=== PATIENT | male | born 1970 | race African-American/Black ===

== ENCOUNTER 2017-05-23 14:50 | Emergency (ER) | payer SELFPAY ==
[~2017-05-23] VITALS: Ht 177.8 cm; Wt 120.0 kg
[~2017-05-23 14:50] MED LIST: CYCL-36 PO; IBUP-232 PO; METF1000 PO; ZOCO40TA PO
[2017-05-23 15:03] VITALS: BP 159/81; PULSE 92; RESP 20; TEMP 99.2; O2SAT 99
--- NOTE | 2017-05-23 15:10 | PD ---
Physical Exam Time Seen by Provider: 15:09 Narrative 47 y/o male with hx DM presents with painful feet from walking. BS 299 per ems. Vital signs reviewed. Seen at triage desk. Awaiting bed placement. Data Data Last Documented VS Vital Signs Date Time Temp Pulse Resp B/P Pulse Ox O2 Delivery O2 Flow Rate FiO2 05/23/17 15:03 99.2 92 20 159/81 99 Room Air MDM Medical Record Reviewed: Yes Supervised Visit with MARY: Paul Ibanez May 23, 2017 15:09
[2017-05-23] MEDS ORDERED: ASPI-110 PO (16:45)
[2017-05-23] MEDS ORDERED: METO25TA6 PO (16:45)
[2017-05-23] MEDS ORDERED: SIMV10TA PO (16:45)
[2017-05-23] MEDS ORDERED: METF1000 PO (16:45)
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
[2017-05-23 17:18] VITALS: BP 133/64; PULSE 75; RESP 18; O2SAT 94
[2017-05-23 17:30] LABS: BASOPHIL % 0.5 % (0.0-2.0); EOSINOPHIL # 0.1 TH/MM3 (0-0.4); EOSINOPHIL % 1.6 % (0.0-4.0); HEMATOCRIT 37.8 % (39.0-51.0); HEMO FLAGS DIFF FINAL; LYMPH % 23.1 % (9.0-44.0); LYMPHOCYTE # 2.1 TH/MM3 (1.0-4.8); MEAN CELL VOLUME 91.3 FL (80.0-100.0); MEAN CORPUSCULAR HEMOGLOBIN 30.1 PG (27.0-34.0); MONO % 10.7 % (0.0-8.0); NEUT % 64.1 % (16.0-70.0); PLATELET COUNT 160 TH/MM3 (150-450); RED BLOOD COUNT 4.14 MIL/MM3 (4.50-5.90); RED CELL DISTRIBUTION WIDTH 13.2 % (11.6-17.2); WHITE BLOOD COUNT 9.3 TH/MM3 (4.0-11.0)
[2017-05-23 17:53] LABS: ANION GAP 6 MEQ/L (5-15); AST (GOT) 107 U/L (15-37); BICARBONATE 30.4 MEQ/L (21.0-32.0); BLOOD UREA NITROGEN 14 MG/DL (7-18); CHLORIDE 104 MEQ/L (98-107); GLOMERULAR FILTRATION RATE 78 ML/MIN (>89); POTASSIUM 3.3 MEQ/L (3.5-5.1); SODIUM (NA) 140 MEQ/L (136-145)
[2017-05-23 17:54] LABS: ALT (GPT) 118 U/L (12-78)
[2017-05-23 17:56] LABS: ALKALINE PHOSPHATASE 47 U/L (45-117); TOTAL BILIRUBIN ADULT 0.8 MG/DL (0.2-1.0)
[2017-05-23] MEDS ORDERED: POTASSIUM CHLORIDE 10 MEQ CONTROLLED RELEASE TAB PO ONE (18:15)
[2017-05-23 18:20] VITALS: BP 169/91; PULSE 75; RESP 18; O2SAT 96
[2017-05-24] VITALS: BP 152/78; PULSE 68; RESP 16; O2SAT 95
== END 2017-05-24 06:20 | disposition home or self-care (01) ==
LOC: NEPE 14:50 → NEDAMB 05-24 06:20
DX: S90.822A Blister (nonthermal), left foot, initial encounter (principal); S90.821A Blister (nonthermal), right foot, initial encounter; F17.200 Nicotine dependence, unspecified, uncomplicated; E78.00 Pure hypercholesterolemia, unspecified; E11.9 Type 2 diabetes mellitus without complications; K21.9 Gastro-esophageal reflux disease without esophagitis; Y93.01 Activity, walking, marching and hiking; Z59.0 Homelessness
CPT/HCPCS: 80053; 85025; 99283

== ENCOUNTER 2017-08-08 02:14 | Inpatient (IN) | payer SELFPAY ==
[2017-08-08] VITALS (13 sets, daily range): BP systolic 112–183; BP diastolic 66–88; PULSE 64–87; RESP 12–22; TEMP 98–101; O2SAT 95–100
[~2017-08-08] VITALS: Ht 177.8 cm; Wt 97.9 kg
[~2017-08-08 02:14] MED LIST changes: +ASPI-110 PO; -CYCL-36 PO; -IBUP-232 PO; +METO25TA6 PO; +SIMV10TA PO; -ZOCO40TA PO
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
[2017-08-08] MEDS ORDERED: ceFAZolin 2 GM PREMIX 50 ML IV ONE (02:45)
[2017-08-08] MEDS ORDERED: DIPHTH/TETANUS/ACEL PERTUSSIS (BOOSTER) 0.5 ML VIAL/PFS IM ONE (02:45)
[2017-08-08] MEDS ORDERED: SODIUM CHLOR 0.9% 1000 ML INJ 1,000 ML IV ONE ×2 (02:45→04:30)
[2017-08-08 02:48] LABS: AUTOMATED NEUTROPHIL # 4.4 TH/MM3 (1.8-7.7); BASOPHIL % 0.6 % (0.0-2.0); EOSINOPHIL # 0.1 TH/MM3 (0-0.4); EOSINOPHIL % 1.4 % (0.0-4.0); HEMATOCRIT 44.3 % (39.0-51.0); HEMO FLAGS DIFF FINAL; LYMPH % 23.6 % (9.0-44.0); LYMPHOCYTE # 1.7 TH/MM3 (1.0-4.8); MEAN CELL VOLUME 91.8 FL (80.0-100.0); MEAN CORPUSCULAR HEMOGLOBIN 30.4 PG (27.0-34.0); MEAN CORPUSCULAR HGB CONC 33.1 % (32.0-36.0); MONO % 13.4 % (0.0-8.0); PLATELET COUNT 198 TH/MM3 (150-450); RED BLOOD COUNT 4.83 MIL/MM3 (4.50-5.90); RED CELL DISTRIBUTION WIDTH 12.5 % (11.6-17.2); WHITE BLOOD COUNT 7.1 TH/MM3 (4.0-11.0)
[2017-08-08 03:05] LABS: APTT (PATIENT) 23.4 SEC (24.3-30.1); INTERNATIONAL NORMALIZED RATIO 0.9 RATIO
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
[2017-08-08 03:36] LABS: BLOOD, URINE TRACE (NEG); GLUCOSE,URINE 1000 mg/dL (NEG); KETONE, URINE 10 mg/dL (NEG); NITRITE,URINE NEG (NEG); PH, URINE 6.5 (5.0-8.5); URINE COLOR LIGHT-YELLOW (YELLW/STRAW)
[2017-08-08 03:43] LABS: COMMENT (UR) CULT NOT INDICATED; CULTURE IF INDICATED CULT NOT INDICATED
[2017-08-08 04:08] LABS: ALKALINE PHOSPHATASE 98 U/L (45-117); ALT (GPT) 38 U/L (12-78); ANION GAP 5 MEQ/L (5-15); AST (GOT) 32 U/L (15-37); BICARBONATE 32.7 MEQ/L (21.0-32.0); BLOOD UREA NITROGEN 15 MG/DL (7-18); CHLORIDE 92 MEQ/L (98-107); CREATINE KINASE 730 U/L (39-308); GLOMERULAR FILTRATION RATE 47 ML/MIN (>89); MAGNESIUM 2.3 MG/DL (1.5-2.5); SODIUM (NA) 130 MEQ/L (136-145); TOTAL BILIRUBIN ADULT 0.6 MG/DL (0.2-1.0)
[2017-08-08 04:09] LABS: ALCOHOL LESS THAN 3 MG/DL (0-5); POTASSIUM 4.8 MEQ/L (3.5-5.1)
[2017-08-08] MEDS ORDERED: IODIXANOL 320 MG/ML 10 ML VIAL (for Rad CT) IVCONTRAST ONE (04:44)
[2017-08-08 04:58] LABS: BLOOD GAS VENOUS BASE EXCESS 7.7 mmol/L (-2-2); BLOOD GAS VENOUS HCO3 34 mmol/L (22-26); BLOOD GAS VENOUS O2 CONTENT 6.4 Vol % (9.0-17.0); BLOOD GAS VENOUS O2 HGB SAT 32 % (70-76); BLOOD GAS VENOUS PCO2 67 mmHg (44-48); BLOOD GAS VENOUS pH 7.32 (7.360-7.400); TEMP CORR TO 98.6
[2017-08-08 04:59] LABS: BLOOD GAS VENOUS PO2 22 mmHg (35-40)
[2017-08-08 05:00] LABS: CRITICAL VALUE YES
[2017-08-08 05:01] LABS: DRAW SITE IV; FIO2 21 %; OXYGEN DEVICE RA; STAT YES
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
[2017-08-08 05:21] LABS: CKMB LESS THAN 0.5 NG/ML (0.5-3.6)
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
[2017-08-08] MEDS ORDERED: INSULIN REGULAR (IV INFUSION) 100 UNITS in SODIUM CHLORIDE 0.9% INJ 99 ML IV SCH (05:30)
[2017-08-08] MEDS ORDERED: CHLORHEXIDINE GLUCONATE 2 % 1 PACK (2 CLOTHS) TOP PRN (07:45)
[2017-08-08] MEDS ORDERED: ONDANSETRON HCL 4 MG/2 ML VIAL IV PUSH PRN (07:45)
[2017-08-08] MEDS ORDERED: MORPHINE SULFATE 4 MG/ML INJ IV PUSH PRN (07:45)
[2017-08-08] MEDS ORDERED: RESP: ALBUTEROL 2.5 MG/IPRATROPIUM 0.5 MG NEB (PRN) INH (07:45)
[2017-08-08] MEDS ORDERED: BISACODYL 10 MG SUPP RECTAL PRN (07:45)
[2017-08-08] MEDS ORDERED: SENNOSIDES 8.6 MG TAB PO PRN (07:45)
[2017-08-08] MEDS ORDERED: MISCELLANEOUS NURSING INFORMATION XX SCH (07:45)
[2017-08-08] MEDS ORDERED: LACTULOSE SYRUP 20 GM/30 ML CUP PO PRN (07:45)
[2017-08-08] MEDS ORDERED: ACETAMINOPHEN 325 MG TAB PO PRN (07:45)
[2017-08-08] MEDS ORDERED: MAGNESIUM HYDROXIDE SUSP 30 ML CUP PO PRN (07:45)
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
[2017-08-08] MEDS: SODIUM CHLOR 0.9% 1000 ML INJ 1,000 ML IV SCH ×3 (08:25→23:53)
[2017-08-08] MEDS: METOPROLOL SUCCINATE 25 MG EXTENDED RELEASE TAB PO SCH (09:00)
[2017-08-08] MEDS: ASPIRIN EC 81 MG TABEC PO SCH (09:00)
[2017-08-08] MEDS: DOCUSATE SODIUM 50 MG/SENNA 8.6 MG TAB PO SCH ×2 (09:00→21:00)
[2017-08-08] MEDS: PANTOPRAZOLE SODIUM 40 MG VIAL IV PUSH SCH (10:07)
[2017-08-08] MEDS: ENOXAPARIN SODIUM 40 MG/0.4 ML SYRINGE SQ SCH (10:07)
[2017-08-08] MEDS ORDERED: DEXTROSE 50% IN WATER 50 ML SYRINGE ONE (12:47)
[2017-08-08] MEDS ORDERED: DEXTROSE 50% IN WATER 50 ML SYRINGE IV PUSH PRN (13:15)
[2017-08-08] MEDS ORDERED: GLUCAGON 1 MG/ML VIAL OTHER PRN (13:15)
[2017-08-08] MEDS ORDERED: DC previous DKA orders (HMC 1917) ONE (13:15)
[2017-08-08] MEDS ORDERED: DC Insulin drip 2 hrs post basal insulin dose ONE (13:15)
[2017-08-08] MEDS: DEXT 5%-NACL 0.9% 1000 ML INJ 1,000 ML IV SCH (14:00)
[2017-08-08] MEDS ORDERED: DEXTROSE 50% IN WATER 50 ML SYRINGE IV ONE (14:00)
--- NOTE | 2017-08-08 14:16 | EKG ---
Date Performed: 08/08/2017 Time Performed: 03:52:01 PTAGE: 47 years EKG: Sinus rhythm NORMAL ECG Compared to prior tracing no significant change PREVIOUS TRACING :12/27/15 DOCTOR: Kobi De La Paz Interpretating Date/Time 08/08/2017 14:14:53
[2017-08-08] MEDS: INSULIN ASPART SUPPLEMENTAL SCALE SQ SCH ×2 (16:52→21:00)
[2017-08-08 17:58] LABS: BICARBONATE 26.8 MEQ/L (21.0-32.0); POTASSIUM 4.1 MEQ/L (3.5-5.1)
[2017-08-08] MEDS: PRAVASTATIN SOD 20 MG TAB PO SCH (21:00)
[2017-08-08] MEDS: INSULIN DETEMIR 100 UNITS/ML VIAL SQ SCH (21:00)
[2017-08-09] VITALS (11 sets, daily range): BP systolic 106–135; BP diastolic 66–79; PULSE 61–75; RESP 15–20; TEMP 98.3–98.9; O2SAT 94–99
[2017-08-09] MEDS: CHLORHEXIDINE GLUCONATE 2 % 1 PACK (2 CLOTHS) TOP SCH (04:00)
[2017-08-09 04:04] LABS: AUTOMATED NEUTROPHIL # 3.2 TH/MM3 (1.8-7.7); BASOPHIL % 0.8 % (0.0-2.0); EOSINOPHIL # 0.2 TH/MM3 (0-0.4); EOSINOPHIL % 2.8 % (0.0-4.0); HEMATOCRIT 42.7 % (39.0-51.0); HEMO FLAGS DIFF FINAL; LYMPH % 29.9 % (9.0-44.0); LYMPHOCYTE # 1.7 TH/MM3 (1.0-4.8); MEAN CELL VOLUME 92.1 FL (80.0-100.0); MEAN CORPUSCULAR HEMOGLOBIN 30.2 PG (27.0-34.0); MEAN CORPUSCULAR HGB CONC 32.8 % (32.0-36.0); NEUT % 55.5 % (16.0-70.0); PLATELET COUNT 161 TH/MM3 (150-450); RED BLOOD COUNT 4.64 MIL/MM3 (4.50-5.90); RED CELL DISTRIBUTION WIDTH 12.6 % (11.6-17.2); WHITE BLOOD COUNT 5.7 TH/MM3 (4.0-11.0)
[2017-08-09 04:19] LABS: BICARBONATE 28.4 MEQ/L (21.0-32.0); MAGNESIUM 1.8 MG/DL (1.5-2.5)
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
[2017-08-09] MEDS: DEXT 5%-NACL 0.9% 1000 ML INJ 1,000 ML IV SCH ×3 (07:00→20:00)
[2017-08-09] MEDS: SODIUM CHLOR 0.9% 1000 ML INJ 1,000 ML IV SCH ×3 (07:58→23:45)
[2017-08-09] MEDS: INSULIN ASPART SUPPLEMENTAL SCALE SQ SCH ×4 (08:00→20:57)
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
[2017-08-09] MEDS: ASPIRIN EC 81 MG TABEC PO SCH (09:02)
[2017-08-09] MEDS: PANTOPRAZOLE SODIUM 40 MG VIAL IV PUSH SCH (09:02)
[2017-08-09] MEDS: ENOXAPARIN SODIUM 40 MG/0.4 ML SYRINGE SQ SCH (09:03)
[2017-08-09] MEDS: DOCUSATE SODIUM 50 MG/SENNA 8.6 MG TAB PO SCH ×2 (09:03→20:56)
[2017-08-09] MEDS: METOPROLOL SUCCINATE 25 MG EXTENDED RELEASE TAB PO SCH (09:03)
[2017-08-09] MEDS: INSULIN DETEMIR 100 UNITS/ML VIAL SQ SCH (20:57)
[2017-08-09] MEDS: PRAVASTATIN SOD 20 MG TAB PO SCH (20:57)
[2017-08-10 00:45] VITALS: BP 115/67; PULSE 61; RESP 17; TEMP 98.5; O2SAT 98
[2017-08-10] MEDS: CHLORHEXIDINE GLUCONATE 2 % 1 PACK (2 CLOTHS) TOP SCH (04:00)
[2017-08-10 05:28] VITALS: BP 126/68; PULSE 62; RESP 17; TEMP 97.7; O2SAT 95
[2017-08-10] MEDS: DEXT 5%-NACL 0.9% 1000 ML INJ 1,000 ML IV SCH (06:00)
[2017-08-10 08:17] VITALS: BP 126/77; PULSE 60; RESP 20; TEMP 97.2; O2SAT 95
[2017-08-10] MEDS: ENOXAPARIN SODIUM 40 MG/0.4 ML SYRINGE SQ SCH (08:36)
[2017-08-10] MEDS: METOPROLOL SUCCINATE 25 MG EXTENDED RELEASE TAB PO SCH (08:36)
[2017-08-10] MEDS: DOCUSATE SODIUM 50 MG/SENNA 8.6 MG TAB PO SCH (08:36)
[2017-08-10] MEDS: ASPIRIN EC 81 MG TABEC PO SCH (08:36)
[2017-08-10] MEDS: PANTOPRAZOLE SODIUM 40 MG VIAL IV PUSH SCH (08:37)
[2017-08-10] MEDS: SODIUM CHLOR 0.9% 1000 ML INJ 1,000 ML IV SCH (08:37)
[2017-08-10] MEDS: INSULIN ASPART SUPPLEMENTAL SCALE SQ SCH ×3 (08:41→17:29)
[2017-08-10] MEDS ORDERED: metFORMIN HCL 500 MG TAB PO SCH (09:00)
[2017-08-10 12:08] VITALS: BP 108/68; PULSE 60; RESP 19; TEMP 97.2; O2SAT 95
[2017-08-10] MEDS ORDERED: INSU1INJ5 SQ (13:15)
[2017-08-10] MEDS ORDERED: INSU-101 (13:15)
[2017-08-10] MEDS ORDERED: BLOOD GLUCOSE M1 KIT (13:15)
--- NOTE | 2017-08-10 13:16 | HHI.DCPOC ---
Discharge Care Plan Diagnosis: (1) Cocaine abuse (2) Altered mental status (3) Diabetes type 2, uncontrolled Goals to Promote Your Health * To prevent worsening of your condition and complications * To maintain your health at the optimal level Directions to Meet Your Goals Take your medications as prescribed Follow your dietary instruction Follow activity as directed Keep your appointments as scheduled Take your immunizations and boosters as scheduled If your symptoms worsen call your PCP, if no PCP go to Urgent Care Center or Emergency Room Smoking is Dangerous to Your Health. Avoid second hand smoke Call the 24-hour hour crisis hotline for domestic abuse at Sherrill Reyes MD Aug 10, 2017 13:16
[2017-08-10 15:48] VITALS: BP 124/75; PULSE 60; RESP 20; TEMP 98.2; O2SAT 100
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
== END 2017-08-10 18:19 | disposition home or self-care (01) | DRG 70 ==
LOC: NEPE 02:14 → NEDA 05:57 → HIMN 08:50 → N05A 08-09 17:43
PROVIDERS: ADMIT Family Medicine; ATTEND Family Medicine
DX: G93.41 Metabolic encephalopathy (principal); E11.01 Type 2 diabetes mellitus with hyperosmolarity with coma; E87.70 Fluid overload, unspecified; I10 Essential (primary) hypertension; F14.10 Cocaine abuse, uncomplicated; E86.0 Dehydration; I25.10 Atherosclerotic heart disease of native coronary artery without angina pectoris; E78.5 Hyperlipidemia, unspecified; G47.30 Sleep apnea, unspecified; K21.9 Gastro-esophageal reflux disease without esophagitis; M16.0 Bilateral primary osteoarthritis of hip; M17.12 Unilateral primary osteoarthritis, left knee; N28.9 Disorder of kidney and ureter, unspecified; F17.210 Nicotine dependence, cigarettes, uncomplicated; Z79.84 Long term (current) use of oral hypoglycemic drugs; Z91.19 Patient's noncompliance with other medical treatment and regimen; R07.9 Chest pain, unspecified
CPT/HCPCS: 70450; 71010; 72125; 73502; 73564; 74177; 80048; 80053; 80307; 81001; 82010; 82550; 82552; 82805; 82948; 83690; 83735; 83880; 84100; 84484; 85025; 85384; 85610; 85730; 86140; 87641; 90471; 90715; 93005; 96361; 96365; C9113; J0690; J1650; J1815; J1817; J7030; J7042; Q9967

== ENCOUNTER 2017-08-23 22:07 | Inpatient (IN) | payer SELFPAY ==
[~2017-08-23] VITALS: Ht 170.2 cm; Wt 88.9 kg
[~2017-08-23 22:07] MED LIST changes: +BLOOD GLUCOSE M1 KIT; +INSU-101; +INSU1INJ5 SQ
[2017-08-23 22:11] VITALS: BP 195/105; PULSE 110; RESP 21; TEMP 99.9; O2SAT 87
[2017-08-23 22:18] VITALS: O2SAT 94
[2017-08-23] MEDS ORDERED: SODIUM CHLOR 0.9% 1000 ML INJ 1,000 ML IV ONE (22:19)
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
[2017-08-23] MEDS ORDERED: DEXT 5%-NACL 0.9% 1000 ML INJ 1,000 ML IV SCH (22:35)
[2017-08-23] MEDS ORDERED: SODIUM CHLOR 0.9% 1000 ML INJ 1,000 ML IV SCH (22:35)
[2017-08-23 22:38] LABS: AUTOMATED NEUTROPHIL # 3.6 TH/MM3 (1.8-7.7); BASOPHIL % 0.6 % (0.0-2.0); EOSINOPHIL # 0.1 TH/MM3 (0-0.4); EOSINOPHIL % 0.9 % (0.0-4.0); HEMATOCRIT 41.3 % (39.0-51.0); HEMO FLAGS DIFF FINAL; LYMPH % 38.4 % (9.0-44.0); LYMPHOCYTE # 2.8 TH/MM3 (1.0-4.8); MEAN CELL VOLUME 92.8 FL (80.0-100.0); MEAN CORPUSCULAR HGB CONC 34.5 % (32.0-36.0); MONO % 9.8 % (0.0-8.0); NEUT % 50.3 % (16.0-70.0); PLATELET COUNT 266 TH/MM3 (150-450); RED BLOOD COUNT 4.45 MIL/MM3 (4.50-5.90); RED CELL DISTRIBUTION WIDTH 12.8 % (11.6-17.2); WHITE BLOOD COUNT 7.3 TH/MM3 (4.0-11.0)
--- NOTE | 2017-08-23 22:40 | RADRPT ---
EXAM DATE/TIME: 08/23/2017 22:23 [facility] COMPARISON: CHEST SINGLE AP, August 09, 2017, 4:46. INDICATIONS : Cough. MEDICAL HISTORY : Nonresponsive. SURGICAL HISTORY : Nonresponsive. ENCOUNTER: Initial ACUITY: 1 day PAIN SCORE: Non-responsive. LOCATION: Bilateral chest FINDINGS: A single view of the chest demonstrates the lungs to be symmetrically aerated without evidence of mas s, infiltrate or effusion. The cardiomediastinal contours are unremarkable. Osseous structures are intact. CONCLUSION: No acute disease. No significant change has occurred. Sp Wren MD on August 23, 2017 at 22:38 Board Certified Radiologist. This report was verified electronically.
[2017-08-23] MEDS ORDERED: INSULIN HUMAN REGULAR 1,000 UNITS/10 ML VIAL IV PUSH ONE (22:45)
[2017-08-23] MEDS ORDERED: INSULIN REGULAR (IV INFUSION) 100 UNITS in SODIUM CHLORIDE 0.9% INJ 99 ML IV PRN (22:45)
[2017-08-23] MEDS ORDERED: POTASSIUM CHLOR 20 MEQ PREMIX 100 ML IV PRN ×6 (22:45)
[2017-08-23] MEDS ORDERED: SODIUM BICARBONATE 8.4% SOLN 50 MEQ/50 ML VIAL IV PUSH PRN ×2 (22:45)
[2017-08-23] MEDS ORDERED: SODIUM PHOSPHATE INJ 15 MMOL in SODIUM CHLORIDE 0.9% INJ 100 ML IV PRN (22:45)
[2017-08-23] MEDS ORDERED: POTASSIUM CHLOR 40 MEQ PREMIX 100 ML IV PRN ×2 (22:45)
[2017-08-23 22:53] VITALS: BP_SYST 192; BP_SYST 197; BP_DIAS 99; PULSE 105; RESP 18; O2SAT 98
[2017-08-23 23:04] LABS: ACETAMINOPHEN LESS THAN 2.0 MCG/ML (10.0-30.0); ALCOHOL LESS THAN 3 MG/DL (0-5); ALKALINE PHOSPHATASE 86 U/L (45-117); ALT (GPT) 26 U/L (12-78); ANION GAP 6 MEQ/L (5-15); AST (GOT) 24 U/L (15-37); BETA-HYDROXYBUTYRATE 0.49 MMOL/L (0.00-0.39); BICARBONATE 29.9 MEQ/L (21.0-32.0); BLOOD UREA NITROGEN 15 MG/DL (7-18); CHLORIDE 95 MEQ/L (98-107); CREATINE KINASE 115 U/L (39-308); GLOMERULAR FILTRATION RATE 72 ML/MIN (>89); MAGNESIUM 2.3 MG/DL (1.5-2.5); POTASSIUM 4.5 MEQ/L (3.5-5.1); SODIUM (NA) 131 MEQ/L (136-145); TOTAL BILIRUBIN ADULT 0.5 MG/DL (0.2-1.0)
[2017-08-23 23:23] LABS: CKMB LESS THAN 0.5 NG/ML (0.5-3.6)
[2017-08-23 23:28] LABS: BLOOD, URINE NEG (NEG); COMMENT (UR) CULT NOT INDICATED; CULTURE IF INDICATED CULT NOT INDICATED; GLUCOSE,URINE 1000 mg/dL (NEG); KETONE, URINE NEG (NEG); NITRITE,URINE NEG (NEG); URINE COLOR LIGHT-YELLOW (YELLW/STRAW)
[2017-08-23 23:35] VITALS: BP 175/91; PULSE 101; RESP 18; O2SAT 97
[2017-08-24] VITALS (11 sets, daily range): BP systolic 118–160; BP diastolic 69–92; PULSE 71–94; RESP 16–21; TEMP 97.3–99; O2SAT 94–100
[2017-08-24] MEDS ORDERED: SENNOSIDES 8.6 MG TAB PO PRN
[2017-08-24] MEDS ORDERED: MAGNESIUM HYDROXIDE SUSP 30 ML CUP PO PRN
[2017-08-24] MEDS ORDERED: BISACODYL 10 MG SUPP RECTAL PRN
[2017-08-24] MEDS ORDERED: CHLORHEXIDINE GLUCONATE 2 % 1 PACK (2 CLOTHS) TOP PRN
[2017-08-24] MEDS ORDERED: LACTULOSE SYRUP 20 GM/30 ML CUP PO PRN
[2017-08-24] MEDS ORDERED: ONDANSETRON HCL 4 MG/2 ML VIAL IV PUSH PRN
[2017-08-24] MEDS ORDERED: RESP: ALBUTEROL 2.5 MG/IPRATROPIUM 0.5 MG NEB (PRN) INH
[2017-08-24] MEDS ORDERED: MISCELLANEOUS NURSING INFORMATION XX SCH
[2017-08-24 03:25] LABS: BICARBONATE 31.9 MEQ/L (21.0-32.0); MAGNESIUM 2.2 MG/DL (1.5-2.5)
[2017-08-24] MEDS ORDERED: CHLORHEXIDINE GLUCONATE 2 % 1 PACK (2 CLOTHS) TOP SCH (04:00)
[2017-08-24] MEDS ORDERED: GLUCAGON 1 MG/ML VIAL OTHER PRN (04:30)
[2017-08-24] MEDS ORDERED: INSULIN DETEMIR 100 UNITS/ML VIAL SQ SCH (04:30)
[2017-08-24] MEDS ORDERED: DEXTROSE 50% IN WATER 50 ML VIAL(D50) IV PUSH PRN (04:30)
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
[2017-08-24] MEDS: HEPARIN SODIUM - SQ 10,000 UNITS/ML VIAL SQ SCH ×2 (06:04→14:57)
[2017-08-24] MEDS: INSULIN NovoLIN REGULAR SUPPLEMENTAL SCALE SQ SCH ×2 (08:57→14:00)
[2017-08-24] MEDS ORDERED: DOCUSATE SODIUM 50 MG/SENNA 8.6 MG TAB PO SCH (09:00)
[2017-08-24] MEDS ORDERED: INSU-101 (12:48)
[2017-08-24] MEDS ORDERED: INSU1INJ5 SQ (12:48)
--- NOTE | 2017-08-24 12:49 | HHI.DCPOC ---
Discharge Care Plan Diagnosis: (1) DKA (diabetic ketoacidoses) (2) Illicit drug use (3) Cocaine abuse Goals to Promote Your Health * To prevent worsening of your condition and complications * To maintain your health at the optimal level Directions to Meet Your Goals Take your medications as prescribed Follow your dietary instruction Follow activity as directed Keep your appointments as scheduled Take your immunizations and boosters as scheduled If your symptoms worsen call your PCP, if no PCP go to Urgent Care Center or Emergency Room Smoking is Dangerous to Your Health. Avoid second hand smoke Call the 24-hour hour crisis hotline for domestic abuse at Sherrill Reyes MD Aug 24, 2017 12:49
--- NOTE | 2017-08-24 12:49 | HHI.DS ---
Discharge Summary Admission Date Aug 23, 2017 at 23:59 Discharge Date: Aug 24, 2017 Admitting Diagnosis AMS, hyperglycemia hyperosmolar state (1) DKA (diabetic ketoacidoses) ICD Code: E13.10 - DKA (diabetic ketoacidoses) Diagnosis: Principal Status: Acute (2) Cocaine abuse ICD Code: F14.10 - Cocaine abuse, uncomplicated Diagnosis: Principal (3) Diabetes type 2, uncontrolled ICD Code: E11.65 - Type 2 diabetes mellitus with hyperglycemia Diagnosis: Principal Status: Acute (4) Non-compliance ICD Code: Z91.19 - Patient's noncompliance with other medical treatment and regimen Diagnosis: Principal Procedures See hospital course. Brief History - From Admission This is a 47-year-old male who presents to the emergency department with a history of altered mental status and being found wandering the street. The patient has been admitted here in the past with drug intoxication as well as diabetic ketoacidosis, most often from medication noncompliance. per EMS, the patient had a critically high blood sugar and a BP of 200/100. Lab tests are pertinent for an elevated serum ketone level with a venous pH 7.2. He has no evidence of infection. He was started on DKA protocol and an insulin drip and the shearing shed hand service was consulted to evaluate and manage his DKA, most likely secondary to medication noncompliance. I evaluated the patient and he was arousable and would follow simple commands. However, he refused to cooperate with my medical exam and did not answer any additional questions. His UDS is + for cocaine. CBC/BMP: 08/23/17 2225 08/24/17 0251 Significant Findings Laboratory Tests Test 08/23/17 22:25 08/23/17 22:32 08/23/17 23:10 08/24/17 02:51 Red Blood Count 4.45 MIL/MM3 (4.50-5.90) Monocytes (%) (Auto) 9.8 % (0.0-8.0) Venous Blood pH 7.24 (7.360-7.400) Random Glucose 688 MG/DL (74-106) 192 MG/DL (74-106) Sodium Level 131 MEQ/L (136-145) Chloride Level 95 MEQ/L (98-107) Estimat Glomerular Filtration Rate 72 ML/MIN (>89) Creatine Kinase MB LESS THAN 0.5 NG/ML Troponin I LESS THAN 0.02 NG/ML Acetaminophen Level LESS THAN 2.0 MCG/ML B-Hydroxybutyrate 0.49 MMOL/L (0.00-0.39) Salicylates Level LESS THAN 1.7 MG/DL Urine Glucose (UA) 1000 mg/dL (NEG) Urine Cocaine Screen POS (NEG) Anion Gap 3 MEQ/L (5-15) Test 08/24/17 10:22 Imaging Last Impressions Chest X-Ray 08/23/172 Signed Impressions: Service Date/Time: Wednesday, August 23, 2017 22:23 - CONCLUSION: No acute disease. No significant change has occurred. Sp Wren MD PE at Discharge GENERAL: in NAD CARDIOVASCULAR: Regular rate and rhythm without murmurs, gallops, or rubs. RESPIRATORY: Breath sounds equal bilaterally. No accessory muscle use. GASTROINTESTINAL: Abdomen soft, non-tender, nondistended. MUSCULOSKELETAL: No cyanosis, or edema. BACK: Nontender without obvious deformity. No CVA tenderness. Pt update on day of discharge Follow-up for DKA and altered mental status Patient was AAO 3. He had no complaints. Deny any pain. He was tolerating oral intake. Sirs. When I asked patient why he wasn't taking his insulin he said he was taken off of his insulin long time ago. I reminded patient that I had him in the hospital about a month ago and that I did put him on insulin and that he was given a prescription for that. When I stated that he just looked at me and did not respond back. Did ask if he can have a prescription for insulin and needles. When I also told him about his cocaine and him being noncompliant cause him to have multiple hospital admission that one day may lead to patient did not respond and just looked at me. When patient's nurse was discharging patient patient would not respond to her, so I came back and saw the patient. When I saw the patient I just stated his name and he was fully alert. He answer all questions appropriately. Patient stated he had no concerns. He did ask the nurse that he needed a bus pass. Hospital Course This is a 47-year-old male with history of medication noncompliance and cocaine use who presents with hyperglycemia and probable early diabetic ketoacidosis versus hyperosmolar nonketotic coma. Patient was admitted to the ICU and was started on DKA protocol with insulin drip. He was weaned off of insulin drip quickly and did well and was back to his baseline. Extensive education to patient about compliance but despite this education patient seemed to not be interested. Pt Condition on Discharge: Stable Discharge Disposition: Discharge Home Discharge Time: > 30 minutes Discharge Instructions DIET: Follow Instructions for: Heart Healthy Diet, Diabetic Diet Activities you can perform: Regular-No Restrictions Follow up Referrals: PCP Follow-up - 1 Week Changed Medications: Insulin Detemir Inj (Levemir Flextouch Pen Inj) 300 unit/3 ML Pen 20 UNITS SQ HS for Blood Sugar Management, #1 PEN 0 Refills (Changed from: 10 UNITS) Continued Medications: Aspirin DR (Aspirin 81) 81 Mg Tabdr 81 MG PO DAILY, TAB 0 Refills Carefine Pen [place] 31G X 8 mm (Carefine Pen [place] 31G X 8 mm) 31 Gauge X 5/ 16" Mis BOX .ROUTE DIRECTED for Blood Sugar Management, #1 0 Refills (This prescription has been renewed) Metformin (Metformin) 1,000 Mg Tab 1000 MG PO BIDPC for Blood Sugar Management, #60 TAB 0 Refills With meals Metoprolol Succinate ER 24 HR (Metoprolol Succinate ER 24 HR) 25 Mg Tab 12.5 MG PO DAILY, #30 TAB 0 Refills Simvastatin (Simvastatin) 10 Mg Tab 10 MG PO HS for Cholesterol Management, #30 TAB 0 Refills Sherrill Reyes MD Aug 24, 2017 12:49
--- NOTE | 2017-08-24 15:10 | EKG ---
Date Performed: 08/23/2017 Time Performed: 22:16:17 PTAGE: 47 years EKG: SINUS TACHYCARDIA INDETERMINATE AXIS LEFT POSTERIOR FASCICULAR BLOCK ABNORMAL ECG PREVIOUS TRACING : 08/08/2017 03.52 Compared to the previous tracing, now LPFB DOCTOR: Cooper Gasca Interpretating Date/Time 08/24/2017 15:08:17
[2017-08-24 15:32] LABS: HEMOGLOBIN A1a 1.9 %; HEMOGLOBIN Ao 66.8 %; HEMOGLOBIN F 4.9 %; HEMOGLOBIN LA1C 2.6 %; HEMOGLOBIN P3 5.6 %
== END 2017-08-24 16:35 | disposition home or self-care (01) | DRG 639 ==
LOC: NEPE 22:07 → NEDA 23:59 → N05A 08-24 05:12
PROVIDERS: ADMIT Family Medicine; ATTEND Family Medicine
DX: E11.10 Type 2 diabetes mellitus with ketoacidosis without coma (principal); I10 Essential (primary) hypertension; F14.10 Cocaine abuse, uncomplicated; Z91.14 Patient's other noncompliance with medication regimen; E78.5 Hyperlipidemia, unspecified; G47.30 Sleep apnea, unspecified; F17.210 Nicotine dependence, cigarettes, uncomplicated; Z79.84 Long term (current) use of oral hypoglycemic drugs; Z79.82 Long term (current) use of aspirin; Z79.4 Long term (current) use of insulin
CPT/HCPCS: 71010; 80048; 80053; 80307; 81001; 82010; 82140; 82550; 82552; 82800; 82948; 83036; 83605; 83690; 83735; 83880; 84100; 84443; 84484; 85025; 86140; 87040; 93005; 94150; 94640; 94667; 96361; 96365; 96368; 96375; J1644; J1815; J1817; J3480; J7030; J7042

== ENCOUNTER 2017-09-16 07:24 | Inpatient (IN) | payer SELFPAY ==
[2017-09-16] VITALS (9 sets, daily range): BP systolic 116–157; BP diastolic 55–80; PULSE 71–84; RESP 16–18; TEMP 96.2–98.6; O2SAT 96–97
[~2017-09-16] VITALS: Ht 182.9 cm; Wt 85.0 kg
[2017-09-16] MEDS ORDERED: SODIUM CHLOR 0.9% 1000 ML INJ 1,000 ML IV ONE ×3 (07:39→08:09)
[2017-09-16] MEDS ORDERED: SODIUM CHLORIDE 0.9% FLUSH 10 ML FLUSH IVF PRN (07:45)
[2017-09-16 07:57] LABS: AUTOMATED NEUTROPHIL # 3.3 TH/MM3 (1.8-7.7); BASOPHIL % 0.5 % (0.0-2.0); EOSINOPHIL # 0.1 TH/MM3 (0-0.4); EOSINOPHIL % 1.7 % (0.0-4.0); HEMATOCRIT 39.1 % (39.0-51.0); HEMOGLOBIN 12.9 GM/DL (13.0-17.0); LYMPHOCYTE # 1.6 TH/MM3 (1.0-4.8); MEAN CELL VOLUME 94.2 FL (80.0-100.0); MEAN CORPUSCULAR HEMOGLOBIN 31.1 PG (27.0-34.0); MEAN PLATELET VOLUME 9.4 FL (7.0-11.0); MONO % 9.6 % (0.0-8.0); MONOCYTE # 0.5 TH/MM3 (0-0.9); NEUT % 59.2 % (16.0-70.0); PLATELET COUNT 194 TH/MM3 (150-450); RED BLOOD COUNT 4.15 MIL/MM3 (4.50-5.90); RED CELL DISTRIBUTION WIDTH 13.1 % (11.6-17.2); WHITE BLOOD COUNT 5.5 TH/MM3 (4.0-11.0)
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
[2017-09-16 08:23] LABS: ALBUMIN 3.1 GM/DL (3.4-5.0); ALT (GPT) 36 U/L (12-78); AST (GOT) 39 U/L (15-37); BICARBONATE 29.7 MEQ/L (21.0-32.0); BLOOD UREA NITROGEN 8 MG/DL (7-18); CALCIUM 8.4 MG/DL (8.5-10.1); CHLORIDE 97 MEQ/L (98-107); CREATININE 1.47 MG/DL (0.60-1.30); GLOMERULAR FILTRATION RATE 63 ML/MIN (>89); LIPASE 169 U/L (73-393); MAGNESIUM 2.1 MG/DL (1.5-2.5); SODIUM (NA) 134 MEQ/L (136-145)
[2017-09-16 08:34] LABS: ALKALINE PHOSPHATASE 83 U/L (45-117); TOTAL BILIRUBIN ADULT 0.4 MG/DL (0.2-1.0); TOTAL PROTEIN 6.7 GM/DL (6.4-8.2)
[2017-09-16 08:34] LABS: BILIRUBIN, URINE NEG (NEG); BLOOD, URINE NEG (NEG); GLUCOSE,URINE 1000 mg/dL (NEG); KETONE, URINE NEG (NEG); NITRITE,URINE NEG (NEG); URINE COLOR LIGHT-YELLOW (YELLW/STRAW); URINE LEUKOCYTE ESTERASE NEG (NEG)
[2017-09-16 08:37] LABS: GLUCOSE,RANDOM 788 MG/DL (74-106)
[2017-09-16] MEDS ORDERED: INSULIN HUMAN REGULAR 1,000 UNITS/10 ML VIAL IV PUSH ONE (09:00)
[2017-09-16] MEDS ORDERED: DEXTROSE 50% IN WATER 50 ML VIAL(D50) IV PUSH PRN (10:45)
[2017-09-16] MEDS ORDERED: GLUCAGON 1 MG/ML VIAL OTHER PRN (10:45)
--- NOTE | 2017-09-16 10:57 | HHI.HP ---
[facility] Unknown Admission Diagnosis Hyperglycemia, Cocaine Abuse Diagnoses: (1) Hyperglycemia Diagnosis: Principal (2) Acute renal insufficiency Diagnosis: Principal (3) Cocaine abuse Diagnosis: Principal Chief Complaint: altered mental statua Travel History International Travel<30 Days: No Contact w/Intl Traveler <30 Da: No Traveled to Known Affected Are: No History of Present Illness patient is a 47 y/o male with history of diabetes, hypertension, noncompliant with the medical treatment with previous admissions with uncontrolled diabetes was brought to ER after he was found urinating on a public building. patient is not a good historian but he says that he took his medications probably two or three weeks ago. as noted patient didn't provide that much of history and most of the information was obtained from the medical record. Review of Systems ROS Limitations: Poor Historian Past Family Social History Past Medical History diabetes mellitus hypertension dyslipidemia Past Surgical History forehead surgery per medical record. Reported Medications Carefine Pen [place] 31G X 8 mm 31 Gauge X 5/16" Mis Box .ROUTE DIRECTED Levemir Flextouch Pen Inj (Insulin Detemir) 300 unit/3 ML Pen 20 Units SQ HS Blood Glucose Monitoring W/Device (Device) 1 Kit Kit Kit .ROUTE DIRECTED Reported Aspirin 81 (Aspirin) 81 Mg Tabdr 81 Mg PO DAILY Metoprolol Succinate ER 24 HR (Metoprolol Succinate) 25 Mg Tab 12.5 Mg PO DAILY Simvastatin 10 Mg Tab 10 Mg PO HS Metformin (Metformin HCl) 1,000 Mg Tab 1,000 Mg PO BIDPC With meals Allergies: Coded Allergies: lisinopril (Unverified Allergy, Intermediate, rash, 06/28/17) Active Ordered Medications Current Medications Sodium Chloride 1,000 ml @ 2,000 mls/hr Q30M ONCE IV Last administered on 09/16 07:46; Start 09/16/17 at 07:39; Stop 09/16/17 at 08:08; Status DC Sodium Chloride 1,000 ml @ 2,000 mls/hr Q30M ONCE IV Last administered on 09/16 09:07; Start 09/16/17 at 08:09; Stop 09/16/17 at 08:38; Status DC Sodium Chloride (NS Flush) 2 ml UNSCH PRN IVF FLUSH AFTER USING IV ACCESS; Start 09/16/17 at 07:45 Sodium Chloride 1,000 ml @ 2,000 mls/hr Q30M ONCE IV Last administered on 09/16 07:46; Start 09/16/17 at 07:39; Stop 09/16/17 at 08:08; Status DC Insulin Human Regular (NovoLIN R INJ) 20 units ONCE ONCE IV PUSH Last administered on 09/16/17 09:15; Start 09/16/17 at 09:00; Stop 09/16/17 at 09:01 ; Status DC Family History could not be obtained. Social History history of cocaine abuse. smokes a few cigarettes a day. Physical Exam Vital Signs Vital Signs Date Time Temp Pulse Resp B/P (MAP) Pulse Ox O2 Delivery O2 Flow Rate FiO2 09/16/17 10:16 80 16 130/74 (92) 97 Room Air 09/16/17 07:40 96 Room Air 09/16/17 07:37 76 16 97 Room Air 09/16/17 07:34 98.6 77 16 142/80 (100) 97 Physical Exam GENERAL: This is a well-nourished, well-developed patient, in no apparent distress. SKIN: No rashes, ecchymoses or lesions. Cool and dry. HEAD: Atraumatic. Normocephalic. No temporal or scalp tenderness. EYES: Pupils equal round and reactive. Extraocular motions intact. No scleral icterus. No injection or drainage. ENT: Nose without bleeding, purulent drainage or septal hematoma. Throat without erythema, tonsillar hypertrophy or exudate. Uvula midline. Airway patent. NECK: Trachea midline. No JVD or lymphadenopathy. Supple, nontender, no meningeal signs. CARDIOVASCULAR: Regular rate and rhythm without murmurs, gallops, or rubs. RESPIRATORY: Clear to auscultation. Breath sounds equal bilaterally. No wheezes , rales, or rhonchi. GASTROINTESTINAL: Abdomen soft, non-tender, nondistended. No hepato-splenomegaly , or palpable masses. No guarding. MUSCULOSKELETAL: Extremities without clubbing, cyanosis, or edema. No joint tenderness, effusion, or edema noted. No calf tenderness. Negative Homans sign bilaterally. NEUROLOGICAL: mildly lethargic but easily arousable. Laboratory Laboratory Tests Test 09/16/17 07:41 09/16/17 07:44 09/16/17 08:18 White Blood Count 5.5 Red Blood Count 4.15 Hemoglobin 12.9 Hematocrit 39.1 Mean Corpuscular Volume 94.2 Mean Corpuscular Hemoglobin 31.1 Mean Corpuscular Hemoglobin Concent 33.0 Red Cell Distribution Width 13.1 Platelet Count 194 Mean Platelet Volume 9.4 Neutrophils (%) (Auto) 59.2 Lymphocytes (%) (Auto) 29.0 Monocytes (%) (Auto) 9.6 Eosinophils (%) (Auto) 1.7 Basophils (%) (Auto) 0.5 Neutrophils # (Auto) 3.3 Lymphocytes # (Auto) 1.6 Monocytes # (Auto) 0.5 Eosinophils # (Auto) 0.1 Basophils # (Auto) 0.0 CBC Comment DIFF FINAL Differential Comment Blood Urea Nitrogen 8 Creatinine 1.47 Random Glucose 788 Total Protein 6.7 Albumin 3.1 Calcium Level 8.4 Phosphorus Level 3.0 Magnesium Level 2.1 Alkaline Phosphatase 83 Aspartate Amino Transf (AST/SGOT) 39 Alanine Aminotransferase (ALT/SGPT) 36 Total Bilirubin 0.4 Sodium Level 134 Potassium Level 4.7 Chloride Level 97 Carbon Dioxide Level 29.7 Anion Gap 7 Estimat Glomerular Filtration Rate 63 Lipase 169 Ethyl Alcohol Level LESS THAN 3 B-Hydroxybutyrate 0.12 Blood Gas Puncture Site RT RADIAL Blood Gas Patient Temperature 98.6 Blood Gas HCO3 28 Blood Gas Base Excess 3.1 Blood Gas Oxygen Saturation 90 Arterial Blood pH 7.36 Arterial Blood Partial Pressure CO2 51 Arterial Blood Partial Pressure O2 75 Arterial Blood Oxygen Content 15.4 Arterial Blood Carboxyhemoglobin 4.6 Arterial Blood Methemoglobin 0.7 Blood Gas Hemoglobin 12.1 Blood Gas Inspired Oxygen 21 Urine Color LIGHT-YELLOW Urine Turbidity CLEAR Urine pH 7.0 Urine Specific [place] 1.031 Urine Protein NEG Urine Glucose (UA) 1000 Urine Ketones NEG Urine Occult Blood NEG Urine Nitrite NEG Urine Bilirubin NEG Urine Urobilinogen LESS THAN 2.0 Urine Leukocyte Esterase NEG Urine RBC 1 Urine WBC LESS THAN 1 Microscopic Urinalysis Comment CULT NOT INDICATED Urine Opiates Screen NEG Urine Barbiturates Screen NEG Urine Amphetamines Screen NEG Urine Benzodiazepines Screen NEG Urine Cocaine Screen POS Urine Cannabinoids Screen NEG Result Diagram: 09/16/1741 09/16/1741 Caprini VTE Risk Assessment Caprini VTE Risk Assessment: Mod/High Risk (score >= 2) Caprini Risk Assessment Model Point Value = 1 Point Value = 2 Point Value = 3 Point Value = 5 Age 41-60 Minor surgery BMI > 25 kg/m2 Swollen legs Varicose veins or History of unexplained or recurrent spontaneous Oral contraceptives or hormone replacement Sepsis (< 1 month) Serious lung disease, including pneumonia (< 1 month) Abnormal pulmonary function Acute myocardial infarction Congestive heart failure (< 1 month) History of inflammatory bowel disease Medical patient at bed rest Age 61-74 Arthroscopic surgery Major open surgery (> 45 min) Laparoscopic surgery (> 45 min) Malignancy Confined to bed (> 72 hours) Immobilizing plaster cast Central venous access Age >= 75 History of VTE Family history of VTE Factor V Leiden Prothrombin [id number] Lupus anticoagulant Anticardiolipin antibodies Elevated serum homocysteine Heparin-induced thrombocytopenia Other congenital or acquired thrombophilia Stroke (< 1 month) Elective arthroplasty Hip, pelvis, or leg fracture Acute spinal cord injury (< 1 month) Prophylaxis Regimen Total Risk Factor Score Risk Level Prophylaxis Regimen 0-1 Low Early ambulation 2 Moderate Order ONE of the following: *Sequential Compression Device (SCD) *Heparin 5000 units SQ BID 3-4 Higher Order ONE of the following medications: *Heparin 5000 units SQ TID *Enoxaparin/Lovenox 40 mg SQ daily (WT < 150 kg, CrCl > 30 mL/min) *Enoxaparin/Lovenox 30 mg SQ daily (WT < 150 kg, CrCl > 10-29 mL/min) *Enoxaparin/Lovenox 30 mg SQ BID (WT < 150 kg, CrCl > 30 mL/min) AND/OR *Sequential Compression Device (SCD) 5 or more Highest Order ONE of the following medications: *Heparin 5000 units SQ TID (Preferred with Epidurals) *Enoxaparin/Lovenox 40 mg SQ daily (WT < 150 kg, CrCl > 30 mL/min) *Enoxaparin/Lovenox 30 mg SQ daily (WT < 150 kg, CrCl > 10-29 mL/min) *Enoxaparin/Lovenox 30 mg SQ BID (WT < 150 kg, CrCl > 30 mL/min) AND *Sequential Compression Device (SCD) Assessment and Plan Assessment and Plan A/P - uncontrolled diabetes - noncompliant with the meds received IV regular insulin in ER- will start him back on subq levemir along with sliding scale coverage. continue wit aggressive IV fluid- A1c last month 18. -acute encephalopathy; due to cocaine abuse- has improved- will monitor -acute kidney injury; continue IV fluid and monitor the renal function -hypertension; resume home meds and will monitor -DVT prophylaxis with subq Lovenox Discussed Condition With ER physician, the patient and RN. Physician Certification 2 Midnight Certification Type: Admission for Inpatient Services Order for Inpatient Services The services are ordered in accordance with Medicare regulations or non- Medicare payer requirements, as applicable. In the case of services not specified as inpatient-only, they are appropriately provided as inpatient services in accordance with the 2-midnight benchmark. Estimated LOS (days): 2 days is the estimated time the patient will need to remain in the hospital, assuming treatment plan goals are met and no additional complications. Post-Hospital Plan: Home Catrachito Lawton MD Sep 16, 2017 10:57
[2017-09-16] MEDS ORDERED: ONDANSETRON HCL 4 MG/2 ML VIAL IV PUSH PRN (11:00)
[2017-09-16] MEDS ORDERED: ACETAMINOPHEN 325 MG TAB PO PRN (11:00)
[2017-09-16] MEDS ORDERED: PILL SPLITTER OTHER PRN (11:30)
[2017-09-16] MEDS: INSULIN ASPART SUPPLEMENTAL SCALE SQ SCH ×3 (12:00→21:20)
[2017-09-16] MEDS: SODIUM CHLOR 0.9% 1000 ML INJ 1,000 ML IV SCH ×2 (14:05→22:13)
[2017-09-16] MEDS: ENOXAPARIN SODIUM 40 MG/0.4 ML SYRINGE SQ SCH (14:05)
[2017-09-16] MEDS ORDERED: PRAVASTATIN SOD 20 MG TAB PO SCH (21:00)
[2017-09-16] MEDS ORDERED: INSULIN DETEMIR 100 UNITS/ML VIAL SQ SCH (21:00)
[2017-09-17] VITALS: BP 130/76; PULSE 84; RESP 16; TEMP 98; O2SAT 96
[2017-09-17 03:47] VITALS: BP 118/74; PULSE 69; RESP 16; TEMP 97.9; O2SAT 98
[2017-09-17] MEDS: SODIUM CHLOR 0.9% 1000 ML INJ 1,000 ML IV SCH ×3 (04:32→15:10)
[2017-09-17 08:00] VITALS: BP 129/69; PULSE 60; RESP 18; TEMP 98.3; O2SAT 99
[2017-09-17 08:01] LABS: BICARBONATE 28.9 MEQ/L (21.0-32.0); CALCIUM 8.5 MG/DL (8.5-10.1); CREATININE 0.84 MG/DL (0.60-1.30)
[2017-09-17] MEDS: INSULIN ASPART SUPPLEMENTAL SCALE SQ SCH ×3 (08:37→17:00)
[2017-09-17] MEDS ORDERED: ASPIRIN EC 81 MG TABEC PO SCH (09:00)
[2017-09-17] MEDS ORDERED: METOPROLOL SUCCINATE 25 MG EXTENDED RELEASE TAB PO SCH (09:00)
[2017-09-17] MEDS ORDERED: INSU1INJ5 SQ (11:27)
[2017-09-17] MEDS ORDERED: SIMV10TA PO (11:27)
[2017-09-17] MEDS ORDERED: METO25TA6 PO (11:27)
[2017-09-17] MEDS ORDERED: ASPI-110 PO (11:27)
[2017-09-17] MEDS ORDERED: METF1000 PO (11:27)
--- NOTE | 2017-09-17 11:31 | HHI.PR ---
Subjective Remarks awake and alert. resting comfortably with no distress. no abdominal pain or nausea. blood sugar trend noted. d/w the RN and no acute issues over night. Objective Vitals Vital Signs Date Time Temp Pulse Resp B/P (MAP) Pulse Ox O2 Delivery O2 Flow Rate FiO2 09/17/17 08:00 98.3 60 18 129/69 (89) 99 09/17/17 03:47 97.9 69 16 118/74 (89) 98 09/17/17 00:00 98.0 84 16 130/76 (94) 96 09/16/17 23:00 84 09/16/17 20:00 72 09/16/17 19:59 98.4 79 17 127/80 (96) 97 09/16/17 16:00 96.2 71 18 157/70 (99) 96 09/16/17 15:00 83 09/16/17 11:42 82 18 116/55 (75) 97 Room Air I/O 09/16/17 09/16/17 09/16/17 09/17/17 09/17/17 09/17/17 07:00 15:00 23:00 07:00 15:00 23:00 Intake Total 3000 ml 1732 ml 1478 ml Output Total 690 ml 900 ml 900 ml Balance 2310 ml 832 ml 578 ml Intake Oral 800 ml 360 ml IV Total 3000 ml 932 ml 1118 ml Output Urine Total 690 ml 900 ml 900 ml Result Diagram: 09/16/17 0741 09/17/17 0530 Objective Remarks GENERAL: This is a well-nourished, well-developed patient, in no apparent distress. CARDIOVASCULAR: Regular rate and regular rhythm without murmurs, gallops, or rubs. RESPIRATORY: Clear to auscultation. Breath sounds equal bilaterally. No wheezes , rales, or rhonchi. GASTROINTESTINAL: Abdomen soft, non-tender, nondistended. Normal, active bowel sounds MUSCULOSKELETAL: Extremities without clubbing, cyanosis, or edema. NEURO: Alert & Oriented x4 to person, place, time, situation. Moves all ext x4 Medications and IVs Current Medications Sodium Chloride 1,000 ml @ 2,000 mls/hr Q30M ONCE IV Last administered on 09/16t 07:46; Start 09/16/17 at 07:39; Stop 09/16/17 at 08:08; Status DC Sodium Chloride 1,000 ml @ 2,000 mls/hr Q30M ONCE IV Last administered on 09/16 09:07; Start 09/16/17 at 08:09; Stop 09/16/17 at 08:38; Status DC Sodium Chloride (NS Flush) 2 ml UNSCH PRN IVF FLUSH AFTER USING IV ACCESS; Start 09/16/17 at 07:45 Sodium Chloride 1,000 ml @ 2,000 mls/hr Q30M ONCE IV Last administered on 09/16 07:46; Start 09/16/17 at 07:39; Stop 09/16/17 at 08:08; Status DC Insulin Human Regular (NovoLIN R INJ) 20 units ONCE ONCE IV PUSH Last administered on 09/16/17 09:15; Start 09/16/17 at 09:00; Stop 09/16/17 at 09:01 ; Status DC Dextrose (D50w (Vial) Inj) 50 ml UNSCH PRN IV PUSH HYPOGLYCEMIA-SEE COMMENTS; Start 09/16/17 at 10:45 Glucagon (Glucagon Inj) 1 mg UNSCH PRN OTHER HYPOGLYCEMIA-SEE COMMENTS; Start 09/16/17 at 10:45 Insulin Aspart (NovoLOG SUPPLEMENTAL SCALE) 1 ACHS SLIDING SCALE SQ Last administered on 09/17/17 08:37; Start 09/16/17 at 12:00 Sodium Chloride 1,000 ml @ 150 mls/hr Q6H40M IV Last administered on 04:32; Start 09/16/17 at 12:30 Aspirin (Ecotrin Ec) 81 mg DAILY PO Last administered on 09/17/17 08:36; Start 09/17/17 at 09:00 Metoprolol Succinate (Toprol Xl) 12.5 mg DAILY PO Last administered on 08:36; Start 09/17/17 at 09:00 Pravastatin Sodium (Pravachol) 20 mg HS PO Last administered on 09/16/17 21:18 ; Start 09/16/17 at 21:00 Ondansetron HCl (Zofran Inj) 4 mg Q8HR PRN IV PUSH NAUSEA; Start 09/16/17 at 11 :00 Acetaminophen (Tylenol) 650 mg Q4H PRN PO FEVER/PAIN; Start 09/16/17 at 11:00 Enoxaparin Sodium (Lovenox Inj) 40 mg Q24H SQ Last administered on 09/16/17 14 :05; Start 09/16/17 at 13:00 Miscellaneous (Pill Splitter) 1 ea UNSCH PRN OTHER SEE LABEL COMMENTS; Start 09/16/17 at 11:30 Insulin Detemir (Levemir Inj) 20 units HS SQ Last administered on 09/16/17 21: 20; Start 09/16/17 at 21:00 A/P Problem List: (1) Hyperglycemia ICD Code: R73.9 - Hyperglycemia, unspecified Status: Acute (2) Acute renal insufficiency ICD Code: N28.9 - Disorder of kidney and ureter, unspecified (3) Cocaine abuse ICD Code: F14.10 - Cocaine abuse, uncomplicated Assessment and Plan A/P - uncontrolled diabetes - noncompliant with the meds- blood sugar overall better. started him back on subq levemir along with sliding scale coverage. A1c last month 18. -acute encephalopathy; due to cocaine abuse- has improved- counselled on drug cessation. -acute kidney injury; resolved. -hypertension; resumed home meds. -DVT prophylaxis with subq Lovenox Discharge Planning likely dc home later this afternoon if blood sugar stable. f/u; pcp. see med list. case management to assist with dc needs. d/w the patient and RN. Catrachito Lawton MD Sep 17, 2017 11:31
[2017-09-17] MEDS ORDERED: NOVORP2 SQ (11:33)
--- NOTE | 2017-09-17 11:34 | HHI.DS ---
Discharge Summary Admission Date Sep 16, 2017 at 09:33 Discharge Date: Sep 17, 2017 Admitting Diagnosis Hyperglycemia, Cocaine Abuse (1) Hyperglycemia ICD Code: R73.9 - Hyperglycemia, unspecified Diagnosis: Principal Status: Acute (2) Acute renal insufficiency ICD Code: N28.9 - Disorder of kidney and ureter, unspecified Diagnosis: Principal (3) Cocaine abuse ICD Code: F14.10 - Cocaine abuse, uncomplicated Diagnosis: Principal Procedures none Brief History - From Admission patient is a 47 y/o male with history of diabetes, hypertension, noncompliant with the medical treatment with previous admissions with uncontrolled diabetes was brought to ER after he was found urinating on a public building. patient is not a good historian but he says that he took his medications probably two or three weeks ago. as noted patient didn't provide that much of history and most of the information was obtained from the medical record. CBC/BMP: 09/16/17 0741 09/17/17 0530 Significant Findings Laboratory Tests Test 09/16/17 07:41 09/16/17 07:44 09/16/17 08:18 09/17/17 05:30 Red Blood Count 4.15 MIL/MM3 (4.50-5.90) Hemoglobin 12.9 GM/DL (13.0-17.0) Monocytes (%) (Auto) 9.6 % (0.0-8.0) Creatinine 1.47 MG/DL (0.60-1.30) Random Glucose 788 MG/DL (74-106) Albumin 3.1 GM/DL (3.4-5.0) Calcium Level 8.4 MG/DL (8.5-10.1) Aspartate Amino Transf (AST/SGOT) 39 U/L (15-37) Sodium Level 134 MEQ/L (136-145) Chloride Level 97 MEQ/L (98-107) Estimat Glomerular Filtration Rate 63 ML/MIN (>89) Blood Gas HCO3 28 mmol/L (22-26) Blood Gas Base Excess 3.1 mmol/L (-2-2) Arterial Blood pH 7.36 (7.380-7.420) Arterial Blood Partial Pressure CO2 51 mmHg (38-42) Arterial Blood Carboxyhemoglobin 4.6 % (0-4) Urine Glucose (UA) 1000 mg/dL (NEG) Urine Cocaine Screen POS (NEG) PE at Discharge GENERAL: This is a well-nourished, well-developed patient, in no apparent distress. CARDIOVASCULAR: Regular rate and regular rhythm without murmurs, gallops, or rubs. RESPIRATORY: Clear to auscultation. Breath sounds equal bilaterally. No wheezes , rales, or rhonchi. GASTROINTESTINAL: Abdomen soft, non-tender, nondistended. Normal, active bowel sounds MUSCULOSKELETAL: Extremities without clubbing, cyanosis, or edema. NEURO: Alert & Oriented x4 to person, place, time, situation. Moves all ext x4 Hospital Course - uncontrolled diabetes - noncompliant with the meds- blood sugar overall better. started him back on subq levemir along with sliding scale coverage. A1c last month 18. -acute encephalopathy; due to cocaine abuse- has improved- counselled on drug cessation. -acute kidney injury; resolved. -hypertension; resumed home meds. -DVT prophylaxis with subq Lovenox Pt Condition on Discharge: Fair Discharge Disposition: Discharge Home Discharge Time: <= 30 minutes Discharge Instructions DIET: Follow Instructions for: Heart Healthy Diet, Diabetic Diet Activities you can perform: Regular-No Restrictions Follow up Referrals: PCP Follow-up New Medications: Insulin Human Regular Inj (Novolin R Inj) 1,000 Unit/10 Ml Vial 1-9 UNITS SQ ACHS for Blood Sugar Management, #10 ML 0 Refills sugars less than 70,(0) units; sugars 150-199,(1)unit; sugars 200-249,(3)units; sugars 250-299,(5) units; sugars 300-349,(7)units; sugars greater than 349,(9)units. inform PCP if < 70 or > 400. Continued Medications: Aspirin DR (Aspirin 81) 81 Mg Tabdr 81 MG PO DAILY for diabetes for 30 Days, #30 TAB 0 Refills (This prescription has been renewed) Insulin Detemir Inj (Levemir Flextouch Pen Inj) 300 unit/3 ML Pen 20 UNITS SQ HS for Blood Sugar Management, #1 PEN 0 Refills (This prescription has been renewed) Metformin (Metformin) 1,000 Mg Tab 1000 MG PO BIDPC for Blood Sugar Management for 30 Days, #60 TAB 0 Refills ( This prescription has been renewed) With meals Metoprolol Succinate ER 24 HR (Metoprolol Succinate ER 24 HR) 25 Mg Tab 12.5 MG PO DAILY for hypertension, #30 TAB 0 Refills (This prescription has been renewed) Simvastatin (Simvastatin) 10 Mg Tab 10 MG PO HS for Cholesterol Management, #30 TAB 0 Refills (This prescription has been renewed) Catrachito Lawton MD Sep 17, 2017 11:34
[2017-09-17 12:00] VITALS: BP 129/83; PULSE 62; RESP 18; TEMP 96.5; O2SAT 99
[2017-09-17] MEDS: ENOXAPARIN SODIUM 40 MG/0.4 ML SYRINGE SQ SCH (12:18)
[2017-09-17 16:00] VITALS: BP 128/81; PULSE 65; RESP 19; TEMP 98.1; O2SAT 99
--- NOTE | 2017-09-18 11:07 | EKG ---
Date Performed: 09/16/2017 Time Performed: 07:44:03 PTAGE: 47 years EKG: Sinus rhythm MARKED LEFT AXIS DEVIATION ABNORMAL ECG PREVIOUS TRACING : 08/23/2017 22.16 Consider anterior injury pattern vs. repolarization abnorma lity. Clinical correlation is recommended. DOCTOR: Donato Cerna Interpretating Date/Time 09/18/2017 11:07:46
== END 2017-09-17 19:39 | disposition home or self-care (01) | DRG 917 ==
LOC: NEPC 07:24 → NEDA 09:33 → N06A 13:20
PROVIDERS: ADMIT Internal Medicine; ATTEND Internal Medicine
DX: T40.5X1A Poisoning by cocaine, accidental (unintentional), initial encounter (principal); G92 Toxic encephalopathy; N28.9 Disorder of kidney and ureter, unspecified; E11.65 Type 2 diabetes mellitus with hyperglycemia; I10 Essential (primary) hypertension; E78.5 Hyperlipidemia, unspecified; K21.9 Gastro-esophageal reflux disease without esophagitis; G47.30 Sleep apnea, unspecified; F17.210 Nicotine dependence, cigarettes, uncomplicated; F14.10 Cocaine abuse, uncomplicated; Z79.4 Long term (current) use of insulin; Z91.14 Patient's other noncompliance with medication regimen
CPT/HCPCS: 36600; 80048; 80053; 80307; 81001; 82010; 82805; 82948; 83690; 83735; 84100; 85025; 93005; 96361; 96374; J1650; J1815; J7030

== ENCOUNTER 2017-09-20 03:11 | Emergency (ER) | payer SELFPAY ==
[~2017-09-20] VITALS: Ht 177.8 cm; Wt 97.7 kg
[~2017-09-20 03:11] MED LIST changes: -ASPI-110 PO; +ASPI1TAB57 PO; +METO1TAB42 PO; -METO25TA6 PO; +NOVORP2 SQ
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
[2017-09-20 03:41] VITALS: BP 113/62; PULSE 75; RESP 16; TEMP 98.1; O2SAT 93
[2017-09-20] MEDS ORDERED: SODIUM CHLOR 0.9% 1000 ML INJ 1,000 ML IV ONE (03:45)
[2017-09-20] MEDS ORDERED: INSULIN HUMAN REGULAR 1,000 UNITS/10 ML VIAL IV PUSH ONE (03:45)
[2017-09-20] MEDS ORDERED: LIDOCAINE 1%/EPINEPHrine 1:100,000 SOLN 50 ML VIAL INFIL ONE (03:45)
== END 2017-09-20 05:53 | disposition home or self-care (01) ==
LOC: NEPD 03:11
DX: S01.81XA Laceration without foreign body of other part of head, initial encounter (principal); E11.65 Type 2 diabetes mellitus with hyperglycemia; E78.00 Pure hypercholesterolemia, unspecified; K21.9 Gastro-esophageal reflux disease without esophagitis; G47.30 Sleep apnea, unspecified; F17.200 Nicotine dependence, unspecified, uncomplicated; X99.9XXA Assault by unspecified sharp object, initial encounter; Z79.4 Long term (current) use of insulin; Z79.899 Other long term (current) drug therapy
CPT/HCPCS: 12011; 96361; 96374; 99284; J1815; J7030

== ENCOUNTER 2017-10-26 06:03 | Emergency (ER) | payer SELFPAY ==
[~2017-10-26] VITALS: Ht 167.6 cm; Wt 70.0 kg
[~2017-10-26 06:03] MED LIST changes: -ASPI1TAB57 PO
[2017-10-26 06:08] VITALS: BP 125/72; PULSE 72; RESP 14; TEMP 97.7; O2SAT 96
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
[2017-10-26] MEDS ORDERED: SODIUM CHLOR 0.9% 1000 ML INJ 1,000 ML IV ONE (06:30)
[2017-10-26 07:04] LABS: AUTOMATED NEUTROPHIL # 5.4 TH/MM3 (1.8-7.7); BASOPHIL % 0.4 % (0.0-2.0); EOSINOPHIL # 0.2 TH/MM3 (0-0.4); EOSINOPHIL % 2.2 % (0.0-4.0); HEMATOCRIT 37.7 % (39.0-51.0); HEMOGLOBIN 12.9 GM/DL (13.0-17.0); LYMPH % 20.7 % (9.0-44.0); LYMPHOCYTE # 1.6 TH/MM3 (1.0-4.8); MEAN CELL VOLUME 93.9 FL (80.0-100.0); MEAN CORPUSCULAR HEMOGLOBIN 32.1 PG (27.0-34.0); MEAN CORPUSCULAR HGB CONC 34.2 % (32.0-36.0); MEAN PLATELET VOLUME 8.5 FL (7.0-11.0); MONO % 9.1 % (0.0-8.0); MONOCYTE # 0.7 TH/MM3 (0-0.9); NEUT % 67.6 % (16.0-70.0); PLATELET COUNT 220 TH/MM3 (150-450); RED BLOOD COUNT 4.02 MIL/MM3 (4.50-5.90); RED CELL DISTRIBUTION WIDTH 13.5 % (11.6-17.2); WHITE BLOOD COUNT 7.9 TH/MM3 (4.0-11.0)
--- NOTE | 2017-10-26 07:09 | RADRPT ---
EXAM DATE/TIME: 10/26/2017 06:52 [facility] COMPARISON: CT BRAIN W/O CONTRAST, August 08, 2017, 4:33. INDICATIONS : Altered mental status. RADIATION DOSE: 38.56 CTDIvol (mGy) MEDICAL HISTORY : Cardiovascular disease. SURGICAL HISTORY : None. ENCOUNTER: Initial ACUITY: 1 day PAIN SCALE: 0/10 LOCATION: cranial TECHNIQUE: Multiple contiguous axial images were obtained of the head. Using automated exposure control and adj ustment of the mA and/or kV according to patient size, radiation dose was kept as low as reasonably a chievable to obtain optimal diagnostic quality images. DICOM format image data is available electro nically for review and comparison. FINDINGS: CEREBRUM: The ventricles are normal for age. No evidence of midline shift, mass lesion, hemorrhage or acute in farction. No extra-axial fluid collections are seen. POSTERIOR FOSSA: The cerebellum and brainstem are intact. The 4th ventricle is midline. The cerebellopontine angle i s unremarkable. EXTRACRANIAL: The visualized portion of the orbits is intact. SKULL: The calvaria is intact. No evidence of skull fracture. CONCLUSION: Negative noncontrast head CT. Donal Cheng MD on October 26, 2017 at 7:07 Board Certified Radiologist. This report was verified electronically.
--- NOTE | 2017-10-26 07:16 | PD ---
Physical Exam Narrative Received sign out from previous team to follow up labs and CT. Please see previous provider's note for further details. 47yo M with DM who complained about this DM when police confronted him after trespassing. CT brain negative. Labs reviewed, no leukocytosis. H/H 12.9/ 37.7 which is at baseline. Creatinine mildly elevated at 1.55. Will have pt follow up with [facility]. Glucose is 197. No increased anion gap. Return precautions given. Data Data Last Documented VS Vital Signs Date Time Temp Pulse Resp B/P (MAP) Pulse Ox O2 Delivery O2 Flow Rate FiO2 10/26/17 06:12 72 14 10/26/17 06:08 97.7 125/72 (89) 96 Orders Orders Complete Blood Count With Diff (10/26/17 06:17) Comprehensive Metabolic Panel (10/26/17 06:17) Ct Brain W/O Iv Contrast(Rout) (10/26/17 ) Sodium Chlor 0.9% 1000 Ml Inj (Ns 1000 M (10/26/17 06:30) Labs Laboratory Tests Test 10/26/17 06:32 White Blood Count 7.9 TH/MM3 Red Blood Count 4.02 MIL/MM3 Hemoglobin 12.9 GM/DL Hematocrit 37.7 % Mean Corpuscular Volume 93.9 FL Mean Corpuscular Hemoglobin 32.1 PG Mean Corpuscular Hemoglobin Concent 34.2 % Red Cell Distribution Width 13.5 % Platelet Count 220 TH/MM3 Mean Platelet Volume 8.5 FL Neutrophils (%) (Auto) 67.6 % Lymphocytes (%) (Auto) 20.7 % Monocytes (%) (Auto) 9.1 % Eosinophils (%) (Auto) 2.2 % Basophils (%) (Auto) 0.4 % Neutrophils # (Auto) 5.4 TH/MM3 Lymphocytes # (Auto) 1.6 TH/MM3 Monocytes # (Auto) 0.7 TH/MM3 Eosinophils # (Auto) 0.2 TH/MM3 Basophils # (Auto) 0.0 TH/MM3 CBC Comment DIFF FINAL Differential Comment Blood Urea Nitrogen 14 MG/DL Creatinine 1.55 MG/DL Random Glucose 197 MG/DL Total Protein 7.4 GM/DL Albumin 3.7 GM/DL Calcium Level 9.5 MG/DL Alkaline Phosphatase 70 U/L Aspartate Amino Transf (AST/SGOT) 29 U/L Alanine Aminotransferase (ALT/SGPT) 57 U/L Total Bilirubin 0.7 MG/DL Sodium Level 140 MEQ/L Potassium Level 3.6 MEQ/L Chloride Level 102 MEQ/L Carbon Dioxide Level 33.1 MEQ/L Anion Gap 5 MEQ/L Estimat Glomerular Filtration Rate 59 ML/MIN MDM Supervised Visit with MARY: No Diagnosis Primary Impression: Elevated serum creatinine Patient Instructions: General Instructions Departure Forms: Tests/Procedures Additional Instruction: You have a mildly elevated creatinine of 1.55 today. Please follow up with [facility] for further evaluation. Return to the ED if symptoms worsen. Med/Other Pt SpecificInfo: No Change to Meds Disposition: 01 DISCHARGE HOME Condition: Stable Margie Armstrong DO Oct 26, 2017 07:16
[2017-10-26 07:26] LABS: ALBUMIN 3.7 GM/DL (3.4-5.0); ALT (GPT) 57 U/L (12-78); AST (GOT) 29 U/L (15-37); BICARBONATE 33.1 MEQ/L (21.0-32.0); BLOOD UREA NITROGEN 14 MG/DL (7-18); CALCIUM 9.5 MG/DL (8.5-10.1); CHLORIDE 102 MEQ/L (98-107); CREATININE 1.55 MG/DL (0.60-1.30); GLOMERULAR FILTRATION RATE 59 ML/MIN (>89); GLUCOSE,RANDOM 197 MG/DL (74-106); SODIUM (NA) 140 MEQ/L (136-145)
[2017-10-26 07:28] LABS: ALKALINE PHOSPHATASE 70 U/L (45-117); TOTAL BILIRUBIN ADULT 0.7 MG/DL (0.2-1.0); TOTAL PROTEIN 7.4 GM/DL (6.4-8.2)
== END 2017-10-26 10:13 | disposition home or self-care (01) ==
LOC: NEPE 06:03
DX: S00.81XA Abrasion of other part of head, initial encounter (principal); R79.89 Other specified abnormal findings of blood chemistry; E11.9 Type 2 diabetes mellitus without complications; R51 Headache; E78.00 Pure hypercholesterolemia, unspecified; K21.9 Gastro-esophageal reflux disease without esophagitis; F17.200 Nicotine dependence, unspecified, uncomplicated; W22.01XA Walked into wall, initial encounter; Z79.4 Long term (current) use of insulin
CPT/HCPCS: 70450; 80053; 85025; 99284; J7030